=== PATIENT | female | born 1995 | race Two or more races ===

== ENCOUNTER → 2018-01-22 | Outpatient (CLI) | payer OTHER | END | disposition home or self-care (01) | LOC: LAB 11:18 | PROVIDERS: ATTEND Specialist | DX: N91.2 Amenorrhea, unspecified (principal) | CPT/HCPCS: 36415; 84702 ==

== ENCOUNTER → 2018-10-22 | Outpatient (CLI) | payer OTHER | END | disposition home or self-care (01) | LOC: LAB 09:52 | PROVIDERS: ATTEND Specialist | DX: N91.2 Amenorrhea, unspecified (principal) | CPT/HCPCS: 36415; 84702 ==

== ENCOUNTER 2019-08-25 21:18 | Emergency (ER) | payer OTHER ==
[~2019-08-25] VITALS: Ht 160 cm; Wt 68.0 kg
[2019-08-25 23:30] VITALS: BP 127/80
[2019-08-26] MEDS ORDERED: ACETAMINOPHEN 500 MG TAB PO ONE (00:15)
[2019-08-26] MEDS ORDERED: IBUPROFEN 800 MG TAB PO ONE (00:15)
== END 2019-08-26 00:44 | disposition home or self-care (01) ==
LOC: ER 21:20
DX: T43.641A Poisoning by ecstasy, accidental (unintentional), initial encounter (principal); R51 Headache; E86.0 Dehydration; R42 Dizziness and giddiness; F41.9 Anxiety disorder, unspecified; Y92.89 Other specified places as the place of occurrence of the external cause
CPT/HCPCS: 70450

== ENCOUNTER → 2019-09-13 | Outpatient (CLI) | payer OTHER ==
[~2019-09-13] VITALS: Ht 160 cm; Wt 68.0 kg
== END | disposition home or self-care (01) ==
LOC: Rad HDHVI 11:22
PROVIDERS: ATTEND Internal Medicine Cardiovascular Disease
DX: R07.9 Chest pain, unspecified (principal)
CPT/HCPCS: 71046; 93017